=== PATIENT | male | born 1995 | race Caucasian/White ===

== ENCOUNTER 2017-02-04 21:07 | Emergency (ER) | payer OTHER ==
[~2017-02-04] VITALS: Ht 182.9 cm; Wt 99.8 kg
[2017-02-04 21:10] VITALS: BP 135/83
[2017-02-04] MEDS ORDERED: IBUPROFEN 600 MG TAB PO ONE (23:15)
== END 2017-02-05 00:17 | disposition home or self-care (01) ==
LOC: ER 21:09
DX: S93.402A Sprain of unspecified ligament of left ankle, initial encounter (principal); X50.1XXA Overexertion from prolonged static or awkward postures, initial encounter; Y93.02 Activity, running; Y99.8 Other external cause status; Y92.89 Other specified places as the place of occurrence of the external cause
CPT/HCPCS: 73610